=== PATIENT | male | born 1955 | race Caucasian/White ===

== ENCOUNTER 2020-04-22 14:16 | Observation (INO) ==
[2020-04-22 15:52] LABS: Basophils # 0.1 K/mcL (0.0-0.2); Basophils % 0.9 %; Eosinophils # 0.3 K/mcL (0.0-0.6); Eosinophils % 2.7 %; Hematocrit 39.4 % (37.5-50.1); Hemoglobin 12.5 g/dL (12.9-16.9); Lymphocytes # 3.5 K/mcL (0.6-4.6); Lymphocytes % 37.6 %; Mean Corpuscular HGB Conc 31.7 g/dL (31.6-35.5); Mean Corpuscular Hemoglobin 27.5 pg (28.0-33.3); Mean Corpuscular Volume 86.8 fL (83.0-100.0); Mean Platelet Volume 10.3 fL (9.4-12.4); Monocytes % 11.3 %; Platelet Count 320 K/mcL (140-400); Red Blood Count 4.54 M/mcL (4.19-5.50); Segmented Neutrophils % 43.5 %; White Blood Count 9.2 K/mcL (4.3-11.1)
[2020-04-22 16:12] LABS: BUN/Creatinine Ratio 25 (6-26); Blood Urea Nitrogen 43 mg/dL (8-23); Carbon Dioxide 27 mEq/L (23-29); Chloride 99 mEq/L (98-107); Glucose 138 mg/dL (70-105); Lipase 160 Units/L (11-82); Osmolality,Calculated 291 (280-300); Potassium 4.8 mEq/L (3.5-5.1); Sodium 134 mEq/L (136-145); eGFR For African Americans 47 (> 60); eGFR For Non-African Americans 39 (> 60)
[2020-04-22 17:15] LABS: Bacteria,Urine Few per hpf (None-Few); Bilirubin,Urine Negative (Negative); Blood,Urine Negative (Negative); Clarity,Urine Turbid (Clear); Color,Urine Yellow (Yellow); Glucose,Urine (UA) Normal (Normal); Ketones,Urine Negative (Negative); Leukocyte Esterase,Urine Large (Negative); Mucus,Urine Few per lpf (None-Few); Nitrite,Urine Positive (Negative); Protein,Urine 30 mg/dL (Neg-Trace); RBC,Urine 0-3 per hpf (0-3); Specific Gravity,Urine 1.019 (1.010-1.025); Urobilinogen,Urine Normal (Normal); WBC,Urine TNTC per hpf (0-3)
[2020-04-22] MEDS ORDERED: cefTRIAXone 1,000 MG in 0.9 % Sodium Chloride Mini Bag 100 ML IVPB ONE (18:31)
[2020-04-22 19:02] LABS: Troponin I < 0.03 ng/mL (< 0.04)
[2020-04-22] MEDS ORDERED: *HR* Promethazine 25 MG/ML VIAL IVP PRN (20:20)
[2020-04-22] MEDS ORDERED: Naloxone 0.4 MG/ML INJ IVP PRN (20:20)
[2020-04-22] MEDS ORDERED: Dextrose Gel 15 GM/37.5 ML TUBE PO PRN ×2 (20:25)
[2020-04-22] MEDS ORDERED: *HR* Dextrose 50 % in Water (Vial) 50 ML VIAL IVP PRN (20:25)
[2020-04-22] MEDS ORDERED: D5% in Water 1,000 ML IVC PRN (20:25)
[2020-04-22 20:43] LABS: Alanine Aminotransferase 16 Units/L (7-52); Albumin 4.1 g/dL (3.5-5.7); Albumin/Globulin Ratio 1.2 (1.1-2.2); Alkaline Phosphatase 130 Units/L (34-104); Aspartate Amino Transferase 15 Units/L (13-39); Bilirubin,Direct 0.1 mg/dL (0.0-0.2); Bilirubin,Indirect 0.2 mg/dL (0.0-1.0); Bilirubin,Total 0.3 mg/dL (0.3-1.0); Globulin 3.4 g/dL (2.4-3.5); Total Protein 7.5 g/dL (6.4-8.9)
[2020-04-22 20:49] LABS: Estimated Average Glucose 206 mg/dl
[2020-04-22] MEDS: *HR* OxyCODONE/APAP 10/325 TABLET PO PRN (22:39)
[2020-04-22] MEDS: 0.9 % Sodium Chloride 1,000 ML IVC SCH (22:44)
[2020-04-22] MEDS: Insulin LISPRO 300 UNITS/3 ML VIAL SQ SCH (22:45)
[2020-04-22] MEDS: *HR* Heparin 5,000 UNIT/ML VIAL SQ SCH (22:45)
[2020-04-23 03:59] LABS: Basophils # 0.1 K/mcL (0.0-0.2); Basophils % 0.7 %; Eosinophils # 0.3 K/mcL (0.0-0.6); Eosinophils % 2.4 %; Hematocrit 36.6 % (37.5-50.1); Hemoglobin 11.8 g/dL (12.9-16.9); Immature Granulocytes % 2.3 % (0-4); Lymphocytes # 3.6 K/mcL (0.6-4.6); Lymphocytes % 34.7 %; Mean Corpuscular HGB Conc 32.2 g/dL (31.6-35.5); Mean Corpuscular Volume 86.7 fL (83.0-100.0); Mean Platelet Volume 10.5 fL (9.4-12.4); Monocytes # 1.1 K/mcL (0.0-1.3); Monocytes % 10.3 %; Neutrophils # 5.1 K/mcL (1.6-8.9); Platelet Count 292 K/mcL (140-400); Red Blood Count 4.22 M/mcL (4.19-5.50); Red Cell Distribution Width 14.7 % (11.5-14.5); Segmented Neutrophils % 49.6 %; White Blood Count 10.3 K/mcL (4.3-11.1)
[2020-04-23 04:01] LABS: Prothrombin Time 11.1 Seconds (9.4-12.1)
[2020-04-23 04:15] LABS: Calcium 9.6 mg/dL (8.6-10.3); Phosphorous 3.1 mg/dL (2.7-4.5); Potassium 4.2 mEq/L (3.5-5.1)
[2020-04-23] MEDS: *HR* Heparin 5,000 UNIT/ML VIAL SQ SCH ×3 (04:22→20:11)
[2020-04-23] MEDS: 0.9 % Sodium Chloride 1,000 ML IVC SCH (04:32)
[2020-04-23] MEDS ORDERED: *HR* Metoprolol 5 MG/5 ML VIAL IVP ONE (06:35)
[2020-04-23] MEDS: *HR* OxyCODONE/APAP 10/325 TABLET PO PRN (09:36)
[2020-04-23] MEDS: polyethylene glycoL 3350 17 GM POWD.PACK PO SCH (09:38)
[2020-04-23] MEDS: cefTRIAXone 1,000 MG in 0.9 % Sodium Chloride Mini Bag 100 ML IVPB SCH (09:39)
[2020-04-23] MEDS: Insulin LISPRO 300 UNITS/3 ML VIAL SQ SCH ×3 (09:39→17:56)
[2020-04-23] MEDS: Bisacodyl 10 MG RECTAL SUPPOSITORY RC SCH (09:39)
[2020-04-23] MEDS: lisinopriL 5 MG TABLET PO SCH (17:56)
[2020-04-23] MEDS: Gabapentin 100 MG CAPSULE PO SCH (20:11)
[2020-04-23] MEDS ORDERED: Mirtazapine 15 MG TABLET PO SCH (21:00)
[2020-04-23] MEDS ORDERED: traZODone 50 MG TABLET PO SCH (21:00)
[2020-04-24] MEDS: Acetaminophen 325 MG TABLET PO PRN ×2 (01:59→08:24)
[2020-04-24 04:14] LABS: Basophils % 0.4 %; Eosinophils # 0.1 K/mcL (0.0-0.6); Hematocrit 34.5 % (37.5-50.1); Hemoglobin 11.2 g/dL (12.9-16.9); Immature Granulocytes % 1.5 % (0-4); Lymphocytes # 2.2 K/mcL (0.6-4.6); Mean Corpuscular HGB Conc 32.5 g/dL (31.6-35.5); Mean Corpuscular Hemoglobin 27.4 pg (28.0-33.3); Mean Corpuscular Volume 84.4 fL (83.0-100.0); Mean Platelet Volume 9.9 fL (9.4-12.4); Monocytes # 0.9 K/mcL (0.0-1.3); Monocytes % 10.7 %; Neutrophils # 4.6 K/mcL (1.6-8.9); Platelet Count 304 K/mcL (140-400); Red Blood Count 4.09 M/mcL (4.19-5.50); Red Cell Distribution Width 14.7 % (11.5-14.5); Segmented Neutrophils % 58.4 %; White Blood Count 7.9 K/mcL (4.3-11.1)
[2020-04-24 04:32] LABS: Alanine Aminotransferase 12 Units/L (7-52); Albumin 3.6 g/dL (3.5-5.7); Albumin/Globulin Ratio 1.1 (1.1-2.2); Alkaline Phosphatase 116 Units/L (34-104); Aspartate Amino Transferase 14 Units/L (13-39); BUN/Creatinine Ratio 19 (6-26); Bilirubin,Total 0.4 mg/dL (0.3-1.0); Blood Urea Nitrogen 27 mg/dL (8-23); Calcium 9.5 mg/dL (8.6-10.3); Carbon Dioxide 25 mEq/L (23-29); Chloride 102 mEq/L (98-107); Globulin 3.2 g/dL (2.4-3.5); Glucose 188 mg/dL (70-105); Lipase 146 Units/L (11-82); Osmolality,Calculated 288 (280-300); Potassium 4.1 mEq/L (3.5-5.1); Sodium 134 mEq/L (136-145); Total Protein 6.8 g/dL (6.4-8.9); eGFR For African Americans > 60 (> 60); eGFR For Non-African Americans 51 (> 60)
[2020-04-24] MEDS: *HR* Heparin 5,000 UNIT/ML VIAL SQ SCH (06:14)
[2020-04-24 06:37] VITALS: BP 144/74
[2020-04-24] MEDS: polyethylene glycoL 3350 17 GM POWD.PACK PO SCH (08:22)
[2020-04-24] MEDS: cefTRIAXone 1,000 MG in 0.9 % Sodium Chloride Mini Bag 100 ML IVPB SCH (08:22)
[2020-04-24] MEDS: Gabapentin 100 MG CAPSULE PO SCH (08:25)
[2020-04-24] MEDS: lisinopriL 5 MG TABLET PO SCH (08:25)
[2020-04-24] MEDS: Bisacodyl 10 MG RECTAL SUPPOSITORY RC SCH (08:26)
[2020-04-24] MEDS: Insulin LISPRO 300 UNITS/3 ML VIAL SQ SCH (08:26)
[2020-04-24] MEDS ORDERED: hydrOXYzine pamoate 25 MG CAPSULE PO SCH (09:00)
[2020-04-24] MEDS ORDERED: Multivit/Ca/Min/Fe/FA 1 TAB TABLET PO SCH (09:00)
[2020-04-24] MEDS ORDERED: Aspirin Enteric Coated 81 MG Tablet PO SCH (09:00)
[2020-04-24] MEDS ORDERED: Cholecalciferol (D-3) 1,000 UNIT (25MCG) TABLET PO SCH (09:00)
== END 2020-04-24 11:03 | disposition home or self-care (01) ==
LOC: EMEROOARM 14:16 → 3ANU 14:16 → SUATTDRO 19:13 → 3ANU 20:00
PROVIDERS: ADMIT Student in an Organized Health Care Education/Training Program; ATTEND Family Medicine

== ENCOUNTER 2020-05-30 08:12 | Observation (INO) ==
[2020-05-30 08:53] LABS: Basophils % 0.5 %; Eosinophils # 0.2 K/mcL (0.0-0.6); Eosinophils % 2.3 %; Hematocrit 40.6 % (37.5-50.1); Hemoglobin 12.8 g/dL (12.9-16.9); Immature Granulocytes % 0.7 % (0-4); Lymphocytes % 22.6 %; Mean Corpuscular HGB Conc 31.5 g/dL (31.6-35.5); Mean Corpuscular Hemoglobin 28.3 pg (28.0-33.3); Mean Corpuscular Volume 89.8 fL (83.0-100.0); Mean Platelet Volume 10.3 fL (9.4-12.4); Monocytes # 0.8 K/mcL (0.0-1.3); Monocytes % 8.7 %; Neutrophils # 5.7 K/mcL (1.6-8.9); Platelet Count 287 K/mcL (140-400); Red Blood Count 4.52 M/mcL (4.19-5.50); Red Cell Distribution Width 15.9 % (11.5-14.5); Segmented Neutrophils % 65.2 %; White Blood Count 8.8 K/mcL (4.3-11.1)
[2020-05-30] MEDS: Nitroglycerin 0.4 MG TAB.SUBL SL PRN ×3 (08:56→14:06)
[2020-05-30 09:14] LABS: BUN/Creatinine Ratio 20 (6-26); Blood Urea Nitrogen 34 mg/dL (8-23); Calcium 9.5 mg/dL (8.6-10.3); Carbon Dioxide 27 mEq/L (23-29); Chloride 101 mEq/L (98-107); Glucose 161 mg/dL (70-105); Osmolality,Calculated 289 (280-300); Potassium 4.4 mEq/L (3.5-5.1); Sodium 134 mEq/L (136-145); Troponin I < 0.03 ng/mL (< 0.04); eGFR For African Americans 50 (> 60); eGFR For Non-African Americans 42 (> 60)
[2020-05-30] MEDS ORDERED: Ondansetron 4 MG/2 ML VIAL IVP PRN (09:43)
[2020-05-30] MEDS ORDERED: Naloxone 0.4 MG/ML INJ IVP PRN (09:43)
[2020-05-30] MEDS ORDERED: *HR* Dextrose 50 % in Water (Vial) 50 ML VIAL IVP PRN (09:48)
[2020-05-30] MEDS ORDERED: D5% in Water 1,000 ML IVC PRN (09:48)
[2020-05-30] MEDS ORDERED: Dextrose Gel 15 GM/37.5 ML TUBE PO PRN ×2 (09:48)
[2020-05-30] MEDS ORDERED: Perflutren Lipid Microsphere 1.3 ML in 0.9 % Sodium Chloride 8.7 ML IVP PRN (09:50)
[2020-05-30] MEDS ORDERED: Albuterol 2.5 MG/3 ML NEBULIZER IH PRN (10:57)
[2020-05-30 11:44] LABS: Amphetamine Screen,Urine Negative ng/mL (Cutoff=1000); Barbiturate Screen,Urine Negative ng/mL (Cutoff=200); Benzodiazepines Screen,Urine Negative ng/mL (Cutoff=200); Cannabinoid Screen,Urine Negative ng/mL (Cutoff = 50); Cocaine Screen,Urine Negative ng/mL (Cutoff= 300); Opiate Screen,Urine Negative ng/mL (Cutoff=300); Phencyclidine Screen,Urine Negative ng/mL (Cutoff=25)
[2020-05-30] MEDS: Insulin LISPRO 300 UNITS/3 ML VIAL SQ SCH ×2 (12:08→17:25)
[2020-05-30] MEDS: Aspirin Enteric Coated 81 MG Tablet PO SCH (12:17)
[2020-05-30] MEDS: *HR* HYDROcodone/Acet 5/325 mg TABLET PO PRN ×2 (12:17→21:29)
[2020-05-30] MEDS: Gabapentin 100 MG CAPSULE PO SCH ×2 (14:05→21:29)
[2020-05-30] MEDS: amLODIPine 5 MG TABLET PO SCH (17:25)
[2020-05-30] MEDS: *HR* Heparin 5,000 UNIT/ML VIAL SQ SCH (17:27)
[2020-05-30] MEDS ORDERED: traZODone 50 MG TABLET PO SCH (21:00)
[2020-05-30] MEDS ORDERED: Insulin DETEMIR 100 UNIT/ML X5UNITS SQ SCH (21:00)
[2020-05-31] MEDS: *HR* HYDROcodone/Acet 5/325 mg TABLET PO PRN ×2 (03:34→09:42)
[2020-05-31 04:53] LABS: Prothrombin Time 10.9 Seconds (9.4-12.1)
[2020-05-31 04:56] LABS: Activated Partial Thrombo Time 39.6 Seconds (26.0-36.0)
[2020-05-31 05:06] LABS: Calcium 9.5 mg/dL (8.6-10.3); Chol/HDL Ratio 3.3 (0-4.9); Phosphorous 3.4 mg/dL (2.7-4.5); Potassium 4.3 mEq/L (3.5-5.1)
[2020-05-31] MEDS ORDERED: Regadenoson 0.4 MG/5 ML SYRINGE IVP ONE (06:01)
[2020-05-31] MEDS: *HR* Heparin 5,000 UNIT/ML VIAL SQ SCH (06:05)
[2020-05-31] MEDS ORDERED: Acetaminophen 325 MG TABLET PO PRN (08:48)
[2020-05-31] MEDS ORDERED: polyethylene glycoL 3350 17 GM POWD.PACK PO PRN (08:48)
[2020-05-31] MEDS: Insulin LISPRO 300 UNITS/3 ML VIAL SQ SCH ×2 (08:53→11:52)
[2020-05-31] MEDS ORDERED: Insulin DETEMIR 100 UNIT/ML X5UNITS SQ SCH (09:00)
[2020-05-31] MEDS ORDERED: hydrOXYzine pamoate 25 MG CAPSULE PO SCH (09:00)
[2020-05-31] MEDS ORDERED: lisinopriL 10 MG TABLET PO SCH (09:00)
[2020-05-31] MEDS: Gabapentin 100 MG CAPSULE PO SCH (09:15)
[2020-05-31] MEDS: amLODIPine 5 MG TABLET PO SCH (09:15)
[2020-05-31] MEDS: Aspirin Enteric Coated 81 MG Tablet PO SCH (09:16)
[2020-05-31] MEDS: Nitroglycerin 0.4 MG TAB.SUBL SL PRN ×2 (10:41→11:06)
[2020-05-31] MEDS ORDERED: Nicotine 21 MG PATCH.TD24 TD SCH (11:15)
[2020-05-31] MEDS ORDERED: amLODIPine 5 MG TABLET PO ONE (11:15)
[2020-05-31 11:42] VITALS: BP 126/74
[2020-05-31] MEDS ORDERED: *HR* OxyCODONE/APAP 10/325 TABLET PO PRN ×2 (12:23→12:31)
[2020-05-31] MEDS ORDERED: *HR* FentaNYL PATCH 12 MCG PATCH TD SCH (12:30)
[2020-05-31] MEDS ORDERED: Mirtazapine 15 MG TABLET PO SCH (21:00)
[2020-05-31] MEDS ORDERED: Metoprolol XL (24 HR) Succ 50 MG TAB.ER.24H PO SCH (21:00)
[2020-06-01] MEDS ORDERED: NIFEdipine XL (24 HR) 60 MG TAB.ER.24 PO SCH (09:00)
[2020-06-01] MEDS ORDERED: amLODIPine 5 MG TABLET PO SCH (09:00)
== END 2020-05-31 14:14 | disposition home or self-care (01) ==
LOC: 3BNU 08:12 → EMEROOARM 08:12 → SUATTDRO 11:17 → 3BNU 11:55
PROVIDERS: ADMIT Internal Medicine; ATTEND Internal Medicine

== ENCOUNTER 2021-11-13 15:07 | Inpatient (IN) ==
[2021-11-13] MEDS ORDERED: Acetaminophen 325 MG TABLET PO PRN (20:14)
[2021-11-13] MEDS ORDERED: Ondansetron 4 MG/2 ML VIAL IVP PRN (20:14)
[2021-11-13] MEDS ORDERED: Melatonin 3 MG TABLET PO PRN (20:14)
[2021-11-13] MEDS ORDERED: Naloxone 0.4 MG/ML INJ IVP PRN (20:14)
[2021-11-13] MEDS: *HR* OxyCODONE Immed Rel 5 MG TABLET PO PRN (21:21)
[2021-11-14] MEDS: *HR* HYDROcodone/Acet 5/325 mg TABLET PO PRN ×2 (00:28→09:12)
[2021-11-14 00:46] LABS: Hematocrit 30.5 % (37.5-50.1); Hemoglobin 9.5 g/dL (12.9-16.9); Mean Corpuscular HGB Conc 31.1 g/dL (31.6-35.5); Mean Corpuscular Hemoglobin 27.8 pg (28.0-33.3); Mean Corpuscular Volume 89.2 fL (83.0-100.0); Mean Platelet Volume 10.6 fL (9.4-12.4); Platelet Count 280 K/mcL (140-400); Red Blood Count 3.42 M/mcL (4.19-5.50); Red Cell Distribution Width 14.5 % (11.5-14.5); White Blood Count 10.8 K/mcL (4.3-11.1)
[2021-11-14 00:58] LABS: INR 1.1; Prothrombin Time 12.6 Seconds (9.4-12.1)
[2021-11-14 01:06] LABS: Calcium 9.3 mg/dL (8.6-10.3); Magnesium 1.9 mg/dL (1.6-2.6); Phosphorous 3.1 mg/dL (2.7-4.5); Potassium 5.1 mEq/L (3.5-5.1)
[2021-11-14] MEDS: *HR* OxyCODONE Immed Rel 5 MG TABLET PO PRN ×3 (02:42→10:39)
[2021-11-14] MEDS ORDERED: *HR* Dextrose 50 % in Water (Syg) 50 ML SYRINGE IVP PRN (05:22)
[2021-11-14] MEDS ORDERED: D5% in Water 1,000 ML IVC PRN (05:22)
[2021-11-14] MEDS ORDERED: Dextrose Gel 15 GM/37.5 ML TUBE PO PRN ×2 (05:22)
[2021-11-14] MEDS ORDERED: 0.9 % Sodium Chloride 1,000 ML IVC SCH (05:30)
[2021-11-14] MEDS ORDERED: Aspirin Enteric Coated 81 MG Tablet PO SCH (09:00)
[2021-11-14] MEDS: Lactobacillus 1 EACH CAP.SPRINK PO SCH ×2 (09:12→20:37)
[2021-11-14] MEDS: cefTRIAXone 1,000 MG in 0.9 % Sodium Chloride Mini Bag 100 ML IVPB SCH (09:13)
[2021-11-14] MEDS ORDERED: *HR* FentaNYL (PF) 100 MCG/2 ML VIAL IVP PRN (11:08)
[2021-11-14] MEDS ORDERED: *HR* HYDROmorphone PF 0.5 MG/0.5 ML SYRINGE IVP PRN ×2 (11:08→14:51)
[2021-11-14] MEDS: Insulin LISPRO 300 UNITS/3 ML VIAL SUBQ SCH ×3 (11:53→22:50)
[2021-11-14] MEDS ORDERED: *HR* Propofol 200 MG/20 ML VIAL IVP ONE (13:11)
[2021-11-14] MEDS ORDERED: *HR* FentaNYL (PF) 100 MCG/2 ML VIAL ONE ×2 (13:11→14:19)
[2021-11-14] MEDS ORDERED: Lidocaine -MPF 2% 5 ML VIAL ONE (13:11)
[2021-11-14] MEDS ORDERED: Ondansetron 4 MG/2 ML VIAL ONE (13:11)
[2021-11-14] MEDS ORDERED: Famotidine 20 MG/2 ML VIAL IVP ONE (13:12)
[2021-11-14] MEDS ORDERED: Acetaminophen IV 1,000 MG/100 ML BAG IVPB ONE (13:12)
[2021-11-14] MEDS ORDERED: CeFAZolin Syr 2,000MG/20 ML 2,000 MG/20 ML SYRINGE IVPB ONE (13:15)
[2021-11-14] MEDS ORDERED: Ondansetron 4 MG/2 ML VIAL IVP PRN (14:53)
[2021-11-14] MEDS ORDERED: CeFAZolin 2 GM/120 ML BAG IVPB SCH (16:00)
[2021-11-14] MEDS: Ringers Solution, Lactated 1,000 ML IVC SCH (16:35)
[2021-11-14] MEDS ORDERED: *HR* Enoxaparin 40 MG/0.4 ML SYRINGE SQ SCH (17:00)
[2021-11-14] MEDS: QUEtiapine Fumarate 300 MG TABLET PO SCH (20:36)
[2021-11-14] MEDS: Mirtazapine 15 MG TABLET PO SCH (20:37)
[2021-11-14] MEDS: traZODone 50 MG TABLET PO SCH (20:42)
[2021-11-14] MEDS: QUEtiapine Fumarate 100 MG TABLET PO SCH (20:42)
[2021-11-14] MEDS: Insulin DETEMIR 100 UNIT/ML X5UNITS SUBQ SCH (22:22)
[2021-11-14] MEDS: CeFAZolin 2 GM/120 ML BAG IVPB SCH (23:21)
[2021-11-15] MEDS: *HR* OxyCODONE Immed Rel 5 MG TABLET PO PRN ×4 (02:19→20:35)
[2021-11-15 05:04] LABS: Basophils % 0.3 %; Eosinophils % 0.1 %; Immature Granulocytes % 0.9 % (0-4); Lymphocytes # 1.8 K/mcL (0.6-4.6); Lymphocytes % 17.4 %; Mean Corpuscular HGB Conc 31.6 g/dL (31.6-35.5); Mean Corpuscular Hemoglobin 27.4 pg (28.0-33.3); Mean Corpuscular Volume 86.8 fL (83.0-100.0); Mean Platelet Volume 10.9 fL (9.4-12.4); Monocytes # 1.4 K/mcL (0.0-1.3); Monocytes % 13.6 %; Neutrophils # 6.9 K/mcL (1.6-8.9); Platelet Count 264 K/mcL (140-400); Red Blood Count 2.88 M/mcL (4.19-5.50); Red Cell Distribution Width 14.4 % (11.5-14.5); Segmented Neutrophils % 67.7 %; White Blood Count 10.2 K/mcL (4.3-11.1)
[2021-11-15 05:24] LABS: Hemoglobin 7.9 g/dL (12.9-16.9)
[2021-11-15 05:25] LABS: Calcium 8.9 mg/dL (8.6-10.3); Potassium 4.9 mEq/L (3.5-5.1)
[2021-11-15] MEDS: CeFAZolin 2 GM/120 ML BAG IVPB SCH (06:54)
[2021-11-15] MEDS: *HR* Enoxaparin 40 MG/0.4 ML SYRINGE SQ SCH (07:40)
[2021-11-15] MEDS: cefTRIAXone 1,000 MG in 0.9 % Sodium Chloride Mini Bag 100 ML IVPB SCH (09:34)
[2021-11-15] MEDS: Gabapentin 100 MG CAPSULE PO SCH ×3 (09:36→20:35)
[2021-11-15] MEDS: Aspirin Enteric Coated 325 MG Tablet PO SCH (09:37)
[2021-11-15] MEDS: Lactobacillus 1 EACH CAP.SPRINK PO SCH ×2 (09:37→20:35)
[2021-11-15] MEDS: Insulin LISPRO 300 UNITS/3 ML VIAL SUBQ SCH ×4 (09:44→21:06)
[2021-11-15] MEDS: QUEtiapine Fumarate 100 MG TABLET PO SCH (20:35)
[2021-11-15] MEDS: QUEtiapine Fumarate 300 MG TABLET PO SCH (20:36)
[2021-11-15] MEDS: traZODone 50 MG TABLET PO SCH (20:36)
[2021-11-15] MEDS: Mirtazapine 15 MG TABLET PO SCH (20:36)
[2021-11-15] MEDS: Insulin DETEMIR 100 UNIT/ML X5UNITS SUBQ SCH (20:49)
[2021-11-16] MEDS: Ringers Solution, Lactated 1,000 ML IVC SCH (03:49)
[2021-11-16 05:30] LABS: Hematocrit 24.6 % (37.5-50.1); Hemoglobin 7.4 g/dL (12.9-16.9); Mean Corpuscular HGB Conc 30.1 g/dL (31.6-35.5); Mean Corpuscular Hemoglobin 27.2 pg (28.0-33.3); Mean Corpuscular Volume 90.4 fL (83.0-100.0); Platelet Count 268 K/mcL (140-400); Red Blood Count 2.72 M/mcL (4.19-5.50); Red Cell Distribution Width 14.6 % (11.5-14.5); White Blood Count 10.7 K/mcL (4.3-11.1)
[2021-11-16] MEDS: *HR* Enoxaparin 40 MG/0.4 ML SYRINGE SQ SCH (05:32)
[2021-11-16 05:48] LABS: Calcium 9.1 mg/dL (8.6-10.3); Potassium 4.9 mEq/L (3.5-5.1)
[2021-11-16] MEDS: *HR* OxyCODONE Immed Rel 5 MG TABLET PO PRN ×4 (07:56→21:04)
[2021-11-16] MEDS: Gabapentin 100 MG CAPSULE PO SCH ×3 (07:57→20:47)
[2021-11-16] MEDS: Lactobacillus 1 EACH CAP.SPRINK PO SCH ×2 (07:57→20:48)
[2021-11-16] MEDS: Aspirin Enteric Coated 325 MG Tablet PO SCH (07:57)
[2021-11-16] MEDS: cefTRIAXone 1,000 MG in 0.9 % Sodium Chloride Mini Bag 100 ML IVPB SCH (08:01)
[2021-11-16] MEDS: Insulin LISPRO 300 UNITS/3 ML VIAL SUBQ SCH ×4 (08:02→20:57)
[2021-11-16] MEDS ORDERED: 0.9 % Sodium Chloride 1,000 ML IVC SCH (09:15)
[2021-11-16] MEDS: Mirtazapine 15 MG TABLET PO SCH (20:48)
[2021-11-16] MEDS: traZODone 50 MG TABLET PO SCH (20:48)
[2021-11-16] MEDS: QUEtiapine Fumarate 300 MG TABLET PO SCH (20:48)
[2021-11-16] MEDS: QUEtiapine Fumarate 100 MG TABLET PO SCH (20:48)
[2021-11-16] MEDS: Insulin DETEMIR 100 UNIT/ML X5UNITS SUBQ SCH (20:49)
[2021-11-17 00:32] VITALS: PULSE 100
[2021-11-17 03:09] LABS: Hematocrit 23.8 % (37.5-50.1); Hemoglobin 7.3 g/dL (12.9-16.9); Mean Corpuscular HGB Conc 30.7 g/dL (31.6-35.5); Mean Corpuscular Hemoglobin 28.2 pg (28.0-33.3); Mean Corpuscular Volume 91.9 fL (83.0-100.0); Mean Platelet Volume 11.1 fL (9.4-12.4); Platelet Count 229 K/mcL (140-400); Red Blood Count 2.59 M/mcL (4.19-5.50); Red Cell Distribution Width 14.4 % (11.5-14.5); White Blood Count 11.6 K/mcL (4.3-11.1)
[2021-11-17 03:27] LABS: Calcium 8.8 mg/dL (8.6-10.3); Potassium 4.4 mEq/L (3.5-5.1)
[2021-11-17] MEDS: *HR* Enoxaparin 40 MG/0.4 ML SYRINGE SQ SCH (05:49)
[2021-11-17 07:29] VITALS: BP 144/74; TEMP 97.6; O2SAT 93
[2021-11-17] MEDS: Insulin LISPRO 300 UNITS/3 ML VIAL SUBQ SCH ×2 (08:15→12:51)
[2021-11-17] MEDS: Aspirin Enteric Coated 325 MG Tablet PO SCH (08:16)
[2021-11-17] MEDS: Lactobacillus 1 EACH CAP.SPRINK PO SCH (08:16)
[2021-11-17] MEDS: cefTRIAXone 1,000 MG in 0.9 % Sodium Chloride Mini Bag 100 ML IVPB SCH (08:16)
[2021-11-17] MEDS: Gabapentin 100 MG CAPSULE PO SCH (08:16)
[2021-11-17] MEDS: *HR* OxyCODONE Immed Rel 5 MG TABLET PO PRN (08:39)
[2021-11-17 12:24] LABS: Adenovirus Not Detected (Not Detect); Bordetella Pertussis Not Detected (Not Detect); Chlamydophila pneumoniae Not Detected (Not Detect); Coronavirus 229E Not Detected (Not Detect); Coronavirus HKU1 Not Detected (Not Detect); Coronavirus NL63 Not Detected (Not Detect); Coronavirus OC43 Not Detected (Not Detect); Human Metapneumovirus Not Detected (Not Detect); Human Rhinovirus/Enterovirus Not Detected (Not Detect); Influenza A Subtype 2009 H1 Not Detected (Not Detect); Influenza B Not Detected (Not Detect); Mycoplasma pneumoniae Not Detected (Not Detect); Parainfluenza Virus 1 Not Detected (Not Detect); Parainfluenza Virus 2 Not Detected (Not Detect); Parainfluenza Virus 3 Not Detected (Not Detect); Parainfluenza Virus 4 Not Detected (Not Detect); Respiratory Syncytial Virus Not Detected (Not Detect); SARS-CoV-2 Not Detected (Not Detect)
[2021-11-17] MEDS: *HR* HYDROcodone/Acet 5/325 mg TABLET PO PRN (12:36)
== END 2021-11-17 12:40 | DRG 481 ==
LOC: 4WAOSI → SUATTDRO 21:08
PROVIDERS: ADMIT Internal Medicine; ATTEND Family Medicine